=== PATIENT | female | born 1995 | race Caucasian/White ===

== ENCOUNTER 2019-04-01 14:44 | Emergency (ER) | payer SELFPAY ==
--- NOTE | 2019-04-01 16:00 | ER ---
Nurse's Notes [facility] Name: Ja Hassan Age: 23 yrs Sex: Female : 1995 Arrival Date: 04/01/2019 Time: 14:46 Bed 9 Private MD: Diagnosis: Low back pain Presentation: 04/01 15:00 Presenting complaint: Patient states: "A week ago I went to the ER because I was having aj1 back pain, they said it was probably muscle pain, but I feel like its bone pain, they didn't do any imaging, and Im still hurting" Denies any recent injury. Transition of care: patient was not received from another setting of care. Onset of symptoms was 2018. Risk Assessment: Do you want to hurt yourself or someone else? Patient reports no desire to harm self or others. Initial Sepsis Screen: Does the patient meet any 2 criteria? No. Patient's initial sepsis screen is negative. Does the patient have a suspected source of infection? No. Patient's initial sepsis screen is negative. Care prior to arrival: None. 15:00 Method Of Arrival: Ambulatory aj1 15:00 Acuity: JUNIOR 4 aj1 Triage Assessment: 15:03 General: Appears in no apparent distress. uncomfortable, Behavior is calm, cooperative, aj1 appropriate for age. Pain: Complains of pain in back Pain currently is 8 out of 10 on a pain scale. Neuro: Level of Consciousness is awake, alert, obeys commands. Cardiovascular: Patient's skin is warm and dry. Respiratory: Airway is patent Respiratory effort is even, unlabored, Respiratory pattern is regular, symmetrical. Musculoskeletal: Range of motion: intact in all extremities. 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 - Social history:: Smoking status: Patient uses tobacco products, smokes one-half pack cigarettes per day. - Ebola Screening: : Patient denies travel to an Ebola-affected area in the 21 days before illness onset. Screenin:30 Abuse screen: Denies threats or abuse. Nutritional screening: No deficits noted. tr5 Tuberculosis screening: No symptoms or risk factors identified. Fall Risk None identified. Assessment: 15:30 General: Appears uncomfortable, Behavior is calm, cooperative, appropriate for age. tr5 Pain: Complains of pain in right low back. Neuro: Level of Consciousness is awake, alert, obeys commands, Oriented to person, place, time, Oracle Developer are equal bilaterally Moves all extremities. Cardiovascular: Heart tones present Capillary refill < 3 seconds Pulses are all present. Edema is absent. Respiratory: Airway is patent Respiratory effort is even, unlabored, Respiratory pattern is regular, symmetrical. GI: No signs and/or symptoms were reported involving the gastrointestinal system. : No signs and/or symptoms were reported regarding the genitourinary system. EENT: No signs and/or symptoms were reported regarding the EENT system. Derm: No signs and/or symptoms reported regarding the dermatologic system. Musculoskeletal: Reports pain in right low back. Vital Signs: 15:03 BP 117 / 83; Pulse 88; Resp 18; Temp 98.0; Pulse Ox 100% on R/A; Weight 58.97 kg (R); aj1 Height 5 ft. 5 in. (165.10 cm) (R); Pain 8/10; 15:03 Body Mass Index 21.63 (58.97 kg, 165.10 cm) aj1 ED Course: 14:46 Patient arrived in ED. as 15:02 Triage completed. aj1 15:03 Arm band placed on Patient placed in waiting room, Patient notified of wait time. [facility] 15:11 Ortega Taylor PA is PHCP. [facility] 15:11 Evangelist Singh MD is Attending Physician. [facility] 15:30 Bed in low position. Call light in reach. Side rails up X 1. tr5 15:52 Jas Galeas, RN is Primary Nurse. tr5 16:05 No provider procedures requiring assistance completed. Patient did not have IV access tr5 during this emergency room visit. Administered Medications: No medications were administered Outcome: 15:58 Discharge ordered by . [facility] 16:05 Discharged to home ambulatory. tr5 16:05 Condition: stable 16:05 Discharge instructions given to patient, Instructed on discharge instructions, follow up and referral plans. medication usage, Demonstrated understanding of instructions, follow-up care, medications, Prescriptions given X 2. 16:07 Patient left the ED. tr5 Signatures: Keri Reyes RN RN aj1 Ortega Taylor PA PA jmm Martinez, Amelia as Rodriguez, Tommie, JUNG RN tr5
--- NOTE | 2019-04-01 16:00 | EDPHYS ---
Physician Documentation [facility] Name: Ja Hassan Age: 23 yrs Sex: Female : 1995 Arrival Date: 04/01/2019 Time: 14:46 Bed 9 Private MD: ED Physician Evangelist Singh HPI: 04/01 15:47 This 23 yrs old Female presents to ER via Ambulatory with complaints of Back jmm Pain. 15:47 The patient presents with pain that is acute. Onset: The symptoms/episode jmm began/occurred gradually, 1 week(s) ago. The pain does not radiate. Associated signs and symptoms: Pertinent negatives: dysuria, fever, hematuria, numbness, tingling. This is a 23 year old female with a history of scoliosis that presents to the ED with complaints of lower back pain. patient denies injury. denies dysuria, radiation of pain, abdominal pain, bowel or bladder problems. . 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 - Social history:: Smoking status: Patient uses tobacco products, smokes one-half pack cigarettes per day. - Ebola Screening: : Patient denies travel to an Ebola-affected area in the 21 days before illness onset. ROS: 15:47 Constitutional: Negative for fever, chills, and weight loss, Cardiovascular: Negative jmm for chest pain, palpitations, and edema, Respiratory: Negative for shortness of breath, cough, wheezing, and pleuritic chest pain. 15:47 Back: Positive for pain with movement. 15:47 All other systems are negative. Exam: 15:47 Constitutional: This is a well developed, well nourished patient who is awake, alert, jmm and in no acute distress. Head/Face: atraumatic. Eyes: EOMI, no conjunctival erythema appreciated ENT: Moist Mucus Membranes Neck: Trachea midline, Supple Chest/axilla: Normal chest wall appearance and motion. Cardiovascular: Regular rate and rhythm. No edema appreciated Respiratory: Normal respirations, no respiratory distress appreciated Abdomen/GI: Non distended, soft 15:47 Skin: General appearance color normal MS/ Extremity: Moves all extremities, no obvious deformities appreciated, no edema noted to the lower extremities Neuro: Awake and alert, normal gait 15:47 Back: muscle spasm, is appreciated in the right low back. Vital Signs: 15:03 BP 117 / 83; Pulse 88; Resp 18; Temp 98.0; Pulse Ox 100% on R/A; Weight 58.97 kg (R); aj1 Height 5 ft. 5 in. (165.10 cm) (R); Pain 8/10; 15:03 Body Mass Index 21.63 (58.97 kg, 165.10 cm) aj1 MDM: 15:40 Patient medically screened. [facility] 15:47 Data reviewed: vital signs, nurses notes. Counseling: I had a detailed discussion with jenny the patient and/or guardian regarding: the historical points, exam findings, and any diagnostic results supporting the discharge/admit diagnosis, the need for outpatient follow up, to return to the emergency department if symptoms worsen or persist or if there are any questions or concerns that arise at home. ED course: PE findings consistent with MS pain. I do not suspect cord compression or cauda equina. Patient is able to ambulate without difficulty. . Administered Medications: No medications were administered Disposition: 17:45 Co-signature as Attending Physician, Evangelist Singh MD. rn Disposition: 04/01/19 15:58 Discharged to Home. Impression: Low back pain. - Condition is Stable. - Discharge Instructions: Back Pain, Adult. - Prescriptions for Prednisone 20 mg Oral Tablet - take 3 tablet by ORAL route once daily for 5 days; 15 tablet. Zanaflex 4 mg Oral Tablet - take 1 tablet by ORAL route every 8 hours As needed; 20 tablet. - Medication Reconciliation Form, Thank You Letter, Antibiotic Education, Prescription Opioid Use, Work release form form. - Follow up: Private Physician; When: 2 - 3 days; Reason: Recheck today's complaints, Continuance of care, Re-evaluation by your physician. Signatures: Keri Reyes RN RN aj1 Ortega Taylor PA PA Evangelist Valencia MD MD rn Rodriguez, Tommie, RN RN tr5 Corrections: (The following items were deleted from the chart) 16:07 15:58 04/01/2019 15:58 Discharged to Home. Impression: Low back pain. Condition is tr5 Stable. Forms are Medication Reconciliation Form, Thank You Letter, Antibiotic Education, Prescription Opioid Use. Follow up: Private Physician; When: 2 - 3 days; Reason: Recheck today's complaints, Continuance of care, Re-evaluation by your physician. jenny
[2019-04-01 18:29] VITALS: BP 117/83; TEMP 98; O2SAT 100
== END 2019-04-01 16:07 | disposition home or self-care (01) ==
LOC: ER 14:44
DX: M54.5 Low back pain (principal); Z88.0 Allergy status to penicillin; F41.9 Anxiety disorder, unspecified; G43.909 Migraine, unspecified, not intractable, without status migrainosus; F17.210 Nicotine dependence, cigarettes, uncomplicated
CPT/HCPCS: 99282

== ENCOUNTER 2020-12-12 12:08 | Emergency (ER) | payer BC, SELFPAY ==
--- OUTSIDE RECORDS SUMMARY | 2020-12-12 12:12 | XMS REPORT | Continuity of Care Document ---
:[address] [facility] t Address [address] [place] [address] Care Team Providers Name Role Phone PCP Primary Care Physician Unavailable Key PUBLIC HEALTH EDUCATOR, F Attending Clinician Nurse, Urgent Care Attending Clinician Unavailable Beto PUTNAM, A. Attending Clinician Payers Payer Name Policy Type Policy Effective Date Expiration Date Sour ce Number [id number] OUT OF 2019 [facility] 00:00[facility]00 [facility] [id number] [id number] Advance Directives Directive Decision Effective Date Termination Date Comments Sour ce Yes N/A Formerly [facility] Problems Condition Condition Condition Status Onset Resolution Last Treating Co mments Source Name Details Category Date Date Treatment Clinician Date Problem Problem [facility] na Allergies, Adverse Reactions, Alerts Allergy Allergy Status Severity Reaction(s) Onset Inactive Treating Comm ents Source Name Type Date Date Clinician Penicill Propensi Active Shortness Of [facility] ins ty to Breath 8-06 st adverse 00:00: Hospita reaction 00 l s to drug Penicill Allergy Active angio edema CH RISTU in to 6-21 S substanc 00:00: Health e [facility] na Social History Social Habit Start Date Stop Date Quantity Comments Source History SDOH [facility] Alcohol Binge Hospital Exposure to Not sure [facility] SARS-CoV-2 (event) Hospit al History SDOH [facility] Alcohol Std Drinks Hospit al Tobacco use and 2020-12-03 2020-12-03 Never used [facility] exposure 00:00:00 00:00:00 Hospital Alcohol intake 2020-12-03 2020-12-03 Lifetime [facility] 00:00:00 00:00:00 non-drinker Hospital (finding) History SDOH 2020-12-03 2020-12-03 1 [facility] Alcohol Frequency 00:00:00 00:00:00 Hospita l Sex Assigned At [birth year] [facility] 00:00:00 00:00:00 Hospital Smoking Status Start Date Stop Date Source Never smoker [facility] Medications Ordered Filled Start Stop Current Ordering Indication Dosage Frequency Signature Comments Components Source Medication Medication Date Date Medication? Clinician (SIG) Name Name codeine-but Yes 1{capsu Q4H Take 1 [facility] albital-ASA 8-06 le} capsule by st -caff 23:45: mouth Hospita (FIORINAL 31 every 4 l WITH (four) CODEINE) hours as 30-50-325-4 needed for 0 mg pain capsule .acute pain. butalbitaL- 2020- No 1{capsu Q4H Take 1 [facility] acetaminop- 8-06 08-10 le} capsule by s t caf-cod 00:00: 04:59 mouth Hospita (FIORICET 00 :00 every 4 l WITH (four) CODEINE) hours as 50-325-40-3 needed for 0 mg per headaches capsule or migraine for up to 3 days .acute pain. Vital Signs Vital Name Observation Time Observation Value Comments Source Systolic blood 2020-12-03 23:39:00 95 mm[Hg] [facility] Hospital pressure Diastolic blood 2020-12-03 23:39:00 64 mm[Hg] [facility] pressure Heart rate 2020-12-03 23:39:00 69 /min [facility] Respiratory rate 2020-12-03 23:39:00 17 /min [facility] Oxygen saturation in 2020-12-03 23:39:00 100 /min [facility] Arterial blood by Pulse oximetry Body temperature 2020-12-03 20:29:35 36.78 Lynne [facility] Heart Rate 2020-10-18 16:56:00 73 /min [facility] marzena Respiratory rate 2020-10-18 16:56:00 16 /min [facility] Body Temperature 2020-10-18 16:56:00 97.8 [degF] [facility] BP Diastolic 2020-10-18 16:56:00 61 mm[Hg] [facility] BP Systolic 2020-10-18 16:56:00 97 mm[Hg] [facility] BP Diastolic 2020-10-18 16:16:00 61 mm[Hg] [facility] BP Systolic 2020-10-18 16:16:00 97 mm[Hg] [facility] Heart Rate 2020-10-18 16:16:00 73 /min [facility] Respiratory rate 2020-10-18 16:16:00 16 /min [facility] Body Temperature 2020-10-18 16:16:00 97.8 [degF] [facility] Procedures Procedure Date / Time Performing Clinician Source Performed ECG 12-LEAD 2020-12-03 23[facility]34[facility] 2020-12-03 23:15:03 Natasha Bautista [facility] INTERPRETATION XR CHEST 1 VW PORTABLE 2020-12-03 22:55:[facility] Planned Activity Planned Date Details Comments Source Future Scheduled Test CHLAMYDIA SCREENING [facility] [code = CHLAMYDIA SCREENING] Future Scheduled Test COVID-19 VACCINE (1) [facility] [code = COVID-19 VACCINE (1)] Future Scheduled Test Hepatitis C screening [facility] (procedure) [code = 096537313] Future Scheduled Test Screening for [facility] malignant neoplasm of cervix (procedure) [code = 268594005] Future Scheduled Test INFLUENZA VACCINE [facility] [code = INFLUENZA VACCINE] Goal Patient referral JADE connor [code = 1076133 ] [facility] Goal Patient referral JADE connor [code = 5651173 ] [facility] Goal Patient referral JADE Martinez alth [code = 9446208 ] [facility] Instructions OTHER [facility] marzena Instructions Lupus [facility] marzena Encounters Start End Encounter Admission Attending Care Care Encounter Source Date/Time Date/Time Type Type Clinicians Facility Department ID 2020-12-05 2020-12-05 Emergency [place], [facility] [id number] 16:24:00 18:01:00 Aixa Luna [place] [id number] [place] [id number] [place] [id number] 2020-12-05 2020-12-05 Nurse Nurse, Jonas [facility] [id number] 16:08:18 16:17:25 Visit Urgent [facility] [id number] [place] [id number] Professio [id number] [address]al [address] 2020-12-03 2020-12-03 Emergency [facility], [id number] Methodi 17:20:00 18:53:[id number] 3.430.2.7 Hospit a .[id number] l .8 2020-12-03 2020-12-03 Emergency [facility] [id number] [place] 00:00:00 00:00:[address] 2020-12-03 2020-12-03 Travel 1.2.840.1 [id number] Methodi 00:00:00 00:00:[id number] 3.430.2.7 0.2.7.3.698 Ho spita .[id number] 084.8 l .8 2020-10-18 2020-10-18 Departed AROLDO HANSEN [id number] CHRISTShelly 16:36:00 17:13:[address] na Results Test Description Test Time Test Comments Results Result Comments Source ECG 12 lead 2020-12-06 00:33:45 Test Item Value Reference Range Interpretation Comme nts Ventricular rate (test code = 253) Atrial rate (test code = 255) SC interval (test code = 266) QRSD interval (test code = 260) QT interval (test code = 264) QTC interval (test code = 265) P axis 1 (test code = 267) QRS axis 1 (test code = 268) T wave axis (test code = 270) EKG impression (test code = 273) Normal sinus rhythm-Normal ECG-No previous ECGs available- [facility] ED Preliminary Interpretation - Not an [id number] 23:15:03SuNatasha sim PA-C 12/03/2020 7:40 PME ED Preliminary Interpretation - Not an OrderPerformed by: Natasha Bautista PA-CAuthorized by: Prashant Pérez MD ECG reviewed by ED Physician in the absence of a articulation officer: yes Rate: ECG rate: 67 ECG rate assessment: normal Rhythm: Rhythm: sinus rhythm QRS: QRS intervals: NormalConduction: Conduction: normal ST segments: ST segments: NormalT waves: T waves: normalChrist[facility] Chest 1 Vw [id number] 23:08:49EXAMINATION: XR CHEST 1 VW PORTABLE CLINICAL HISTORY: Rapid heart Rate COMPARISON: None IMPRESSION: Cardiomediastinal silhouette and pulmonary vasculature are within normal limits. Lungs are clear. No pleural effusion or pneumothorax. Bones are unremarkable. [id number] Interface, Radiology Results Incoming - 12/03/2020 6:11 PM CDT EXAMINATION: XR CHEST 1 VW PORTABLECLINICAL HISTORY: Rapid heart RateCOMPARISON: NoneIMPRESSION:Cardiomediastinal silhouette and pulmonary vasculature are within normal limits.Lungs are clear. No pleural effusion or pneumothorax.Bones are unremarkable.[id number]
[2020-12-12] MEDS ORDERED: HYDROCODONE/APAP 5/325 MG TAB ONE ×2 (15:13→16:40)
[2020-12-12] MEDS ORDERED: dexAMETHasone 10 MG/ML VIAL ONE (15:13)
--- NOTE | 2020-12-12 15:52 | EDPHYS ---
Physician Documentation [facility] Name: Ja Hassan Age: 25 yrs Sex: Female : 1995 Arrival Date: 12/12/2020 Time: 12:12 Bed 12 Private MD: ED Physician Nakul Andrade HPI: 12/12 14:23 This 25 yrs old Female presents to ER via Ambulatory with complaints of Lupus pm1 Flare up. 14:23 Flare up of lupus -rash to face and pain to large joints. Patient has had flareups in pm1 the past and the presentation is the same. 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 Onset: The symptoms/episode began/occurred 2 week(s) ago. Severity of symptoms: in the emergency department the symptoms are worse No improvement with OTC pain medication. 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 - Social history:: Smoking status: Patient denies any tobacco usage or history of. ROS: 14:45 Constitutional: Negative for fever, chills, and weight loss, Cardiovascular: Negative pm1 for chest pain, palpitations, and edema, Respiratory: Negative for shortness of breath, cough, wheezing, and pleuritic chest pain, Abdomen/GI: Negative for abdominal pain, nausea, vomiting, diarrhea, and constipation, Back: Negative for injury and pain. 14:45 Neuro: Negative for headache, weakness, numbness, tingling, and seizure. 14:45 MS/extremity: Positive for Large joints pain, Negative for injury or acute deformity, decreased range of motion, deformity. 14:45 Skin: Positive for rash, of the face. 14:45 All other systems are negative. Exam: 14:45 Constitutional: This is a well developed, well nourished patient who is awake, alert, pm1 and in no acute distress. Head/Face: Normocephalic, atraumatic. 14:45 Back: No spinal tenderness. No costovertebral tenderness. Full range of motion. MS/ Extremity: Pulses equal, no cyanosis. Neurovascular intact. Full, normal range of motion. 14:45 Eyes: Exam is negative for acute changes, Extraocular movements: no acute changes, Conjunctiva: normal, no injection, Sclera: no acute changes, icterus, is not appreciated. 14:45 ENT: Exam is negative for acute changes, Mouth: no acute changes, Lips: normal, Oral mucosa: normal, pink and intact, moist. 14:45 Cardiovascular: Rate: normal, Rhythm: regular, Pulses: no pulse deficits are appreciated. 14:45 Respiratory: Exam negative for acute changes, respiratory distress, shortness of breath, Breath sounds: are clear throughout. 14:45 Abdomen/GI: Inspection: abdomen appears normal, Palpation: abdomen is soft and non-tender, in all quadrants. 14:45 Skin: Appearance: normal except for affected area, consistent with Lupus rash. Reddish butterfly-shaped rash on face with bumpy appearance. 14:45 Neuro: Exam negative for acute changes, Orientation: is normal, Mentation: is normal, Motor: is normal, moves all fours. Vital Signs: 12:31 BP 116 / 67; Pulse 103; Resp 14; Temp 98.3(TE); Pulse Ox 99% on R/A; Weight 58.97 kg; ss Height 5 ft. 5 in. (165.10 cm); Pain 8/10; 14:57 BP 110 / 70; Pulse 90; Resp 16; Pulse Ox 100% ; vg1 12:31 Body Mass Index 21.63 (58.97 kg, 165.10 cm) ss MDM: 14:10 Patient medically screened. pm1 14:23 Data reviewed: vital signs. Data interpreted: Pulse oximetry: on room air is 99 %. pm1 Interpretation: normal. 15:39 ED course: CELERY CUTTER aware reviewed. Patient with narcotic score 500 sedative for 490. pm1 Patient with a recent subscription for hydrocodone on 12/06/2020 from internal medicine physician. Will discharge patient home with steroids and recommend follow-up with PCP or internal medicine physician for narcotics as needed. 15:41 Counseling: I had a detailed discussion with the patient and/or guardian regarding: the pm1 historical points, exam findings, and any diagnostic results supporting the discharge/admit diagnosis, the need for outpatient follow up, for definitive care, a sausage wrapper, to return to the emergency department if symptoms worsen or persist or if there are any questions or concerns that arise at home. 16:12 ED course: Explained findings on CELERY CUTTER aware. And discussed with patient plan to treat pm1 with steroids and inability to provide narcotics as a prescription. She will need to get narcotics from a regular PCP or sausage wrapper. She reports pain is improved at 5 out of 10. Offered to give the patient additional pain meds prior to leaving. Administered Medications: 14:52 Drug: HYDROcodone-acetaminophen 5 mg-325 mg 1 tabs Route: PO; vg1 16:20 Follow up: Response: No adverse reaction; Marked relief of symptoms vg1 14:57 Drug: Decadron (dexamethasone) 10 mg Route: IM; Site: left deltoid; vg1 16:20 Follow up: Response: No adverse reaction vg1 16:20 Drug: HYDROcodone-acetaminophen 5 mg-325 mg 1 tabs Route: PO; vg1 16:20 Follow up: Response: Medication administered at discharge. vg1 Disposition: 18:36 Co-signature as Attending Physician, Nakul Andrade MD I agree with the assessment and tw4 plan of care. Disposition Summary: 12/12/20 15:52 Discharge Ordered Location: Home pm1 Problem: new pm1 Symptoms: have improved pm1 Condition: Stable pm1 Diagnosis - Systemic lupus erythematosus, unspecified pm1 Followup: pm1 - With: Emergency Department - When: As needed - Reason: Worsening of condition Followup: pm1 - With: Private Physician - When: 2 - 3 days - Reason: Recheck today's complaints, Continuance of care, Re-evaluation by your physician Discharge Instructions: - Discharge Summary Sheet pm1 - Systemic Lupus Erythematosus, Adult pm1 Forms: - Medication Reconciliation Form pm1 - Thank You Letter pm1 - Antibiotic Education pm1 - Prescription Opioid Use pm1 Prescriptions: - Prednisone 20 mg Oral Tablet - take 3 tablets by ORAL route once daily for 5 days; 15 tablet; Refills: 0, pm1 Product Selection Permitted Signatures: Vivian Busby RN RN ss Juan Chau, POWER AND RECOVERY SUPERVISOR POWER AND RECOVERY SUPERVISOR pm1 Nakul Andrade MD MD 4 Mercedes Godinez RN RN vg1
--- NOTE | 2020-12-12 15:52 | ER ---
Nurse's Notes [facility] Name: Ja Hassan Age: 25 yrs Sex: Female : 1995 Arrival Date: 12/12/2020 Time: 12:12 Bed 12 Private MD: Diagnosis: Systemic lupus erythematosus, unspecified Presentation: 12/12 12:31 Chief complaint: Patient states: Lupus flare up. Pt c/o generalized body pain that is ss worse in her "biggest joints" that began 1 week ago. Coronavirus screen: Client denies travel out of the [place] in the last 14 days. Ebola Screen: Patient denies exposure to infectious person. Patient denies travel to an Ebola-affected area in the 21 days before illness onset. Initial Sepsis Screen: Does the patient meet any 2 criteria? No. Patient's initial sepsis screen is negative. Does the patient have a suspected source of infection? No. Patient's initial sepsis screen is negative. Risk Assessment: Do you want to hurt yourself or someone else? Patient reports no desire to harm self or others. Onset of symptoms was December 04, 2020. 12:31 Method Of Arrival: Ambulatory ss 12:31 Acuity: JUNIOR 3 ss BACTERIOLOGIST INDUSTRIAL: 12:33 LMP 11/21/2020 ss Historical: - Allergies: 12:33 PENICILLINS; ss - Home Meds: 12:33 hydroxychloroquine 200 mg oral tab 1 tab once daily [Active]; ss - PMHx: 12:33 Anxiety; Migraines; Ovarian cyst; Rheumatoid arthritis; Lupus; ss - PSHx: 12:33 tubal ligation; ss - Immunization history:: Adult Immunizations up to date. - Social history:: Smoking status: Patient denies any tobacco usage or history of. Screenin:57 Abuse screen: Denies threats or abuse. Nutritional screening: No deficits noted. vg1 Tuberculosis screening: No symptoms or risk factors identified. Fall Risk None identified. Assessment: 14:47 General: Appears in no apparent distress. comfortable, Behavior is calm, cooperative. vg1 Pain: Complains of pain in stated generalized body pain Pain currently is 8 out of 10 on a pain scale. Pain began for about two weeks. Neuro: Level of Consciousness is awake, alert, obeys commands, Oriented to person, place, time, situation. Cardiovascular: Patient's skin is warm and dry. Respiratory: Airway is patent Respiratory effort is even, unlabored. GI: No signs and/or symptoms were reported involving the gastrointestinal system. : No signs and/or symptoms were reported regarding the genitourinary system. EENT: No signs and/or symptoms were reported regarding the EENT system. Derm: Skin is intact, is healthy with good turgor, Rash noted that is red, on face. Musculoskeletal: Circulation, motion, and sensation intact. 16:13 Reassessment: received VO from Isac COELHO to administer [place] 5/325 mg PO x1. vg1 16:20 Reassessment: Patient appears in no apparent distress at this time. No changes from vg1 previously documented assessment. Patient and/or family updated on plan of care and expected duration. Pain level reassessed. Patient is alert, oriented x 3, equal unlabored respirations, skin warm/dry/pink. Vital Signs: 12:31 BP 116 / 67; Pulse 103; Resp 14; Temp 98.3(TE); Pulse Ox 99% on R/A; Weight 58.97 kg; ss Height 5 ft. 5 in. (165.10 cm); Pain 8/10; 14:57 BP 110 / 70; Pulse 90; Resp 16; Pulse Ox 100% ; vg1 12:31 Body Mass Index 21.63 (58.97 kg, 165.10 cm) ED Course: 12:12 Patient arrived in ED. mr 12:33 Triage completed. ss 12:33 Arm band placed on right wrist. ss 14:09 Juan Chau NP is PHCP. pm1 14:09 Nakul Andrade MD is Attending Physician. pm1 14:46 Mercedes Godinez, RN is Primary Nurse. vg1 14:57 Patient has correct armband on for positive identification. Bed in low position. Call vg1 light in reach. Side rails up X 1. 14:57 No provider procedures requiring assistance completed. Patient did not have IV access vg1 during this emergency room visit. Administered Medications: 14:52 Drug: HYDROcodone-acetaminophen 5 mg-325 mg 1 tabs Route: PO; vg1 16:20 Follow up: Response: No adverse reaction; Marked relief of symptoms vg1 14:57 Drug: Decadron (dexamethasone) 10 mg Route: IM; Site: left deltoid; vg1 16:20 Follow up: Response: No adverse reaction vg1 16:20 Drug: HYDROcodone-acetaminophen 5 mg-325 mg 1 tabs Route: PO; vg1 16:20 Follow up: Response: Medication administered at discharge. vg1 Outcome: 15:52 Discharge ordered by . pm1 16:20 Discharged to home ambulatory, with family. vg1 16:20 Condition: stable 16:20 Discharge instructions given to patient, Instructed on discharge instructions, follow up and referral plans. Demonstrated understanding of instructions, follow-up care, medications, Prescriptions given X 1. 16:21 Patient left the ED. vg1 Signatures: Namita Keith mr Vivian Busby, RN RN ss Juan Chau, MELITON TRAY DELIVERY AIDE pm1 Mercedes Godinez RN RN vg1 Corrections: (The following items were deleted from the chart) 16:14 14:47 Derm: Skin is intact, is healthy with good turgor, vg1 vg1
[2020-12-12 16:27] VITALS: TEMP 98.3
[2020-12-12 16:28] VITALS: BP 110/70; O2SAT 100
== END 2020-12-12 16:21 | disposition home or self-care (01) ==
LOC: ER 12:08
DX: M32.9 Systemic lupus erythematosus, unspecified (principal); Z88.0 Allergy status to penicillin
CPT/HCPCS: 96372; 99283; J1100

== ENCOUNTER 2020-12-17 15:11 | Emergency (ER) | payer BC ==
--- OUTSIDE RECORDS SUMMARY | 2020-12-17 15:14 | XMS REPORT | Continuity of Care Document ---
:1995 Author Organization [facility] t Address [address] [place] [address] Care Team Providers Name Role Phone Asked, Pcp Primary Care Physician Unavailable Key MEDICAL SCIENTIST, F Attending Clinician Nurse, Urgent Care Attending Clinician Unavailable Beto PUTNAM, A. Attending Clinician Payers Payer Name Policy Type Policy Effective Date Expiration Date Sour ce Number [id number] OUT OF 2019 [facility]xx 001 00:00:00 [facility] [id number] [id number] Advance Directives Directive Decision Effective Date Termination Date Comments Sour ce Yes N/A [facility] Problems Condition Condition Condition Status Onset Resolution Last Treating Co mments Source Name Details Category Date Date Treatment Clinician Date Problem Problem [facility] Allergies, Adverse Reactions, Alerts Allergy Allergy Status Severity Reaction(s) Onset Inactive Treating Comm ents Source Name Type Date Date Clinician Penicill Propensi Active Shortness Of Methodi ins ty to Breath 8-06 st adverse 00:00: Hospita reaction 00 l s to drug Penicill Allergy Active angio edema [facility] in to 6-21 S substanc 00:00: [facility] [place] Social History Social Habit Start Date Stop Date Quantity Comments Source History SDOH [facility] History SDOH [facility] Std Drinks Hospit al Exposure to Not sure [facility] SARS-CoV-2 (event) Hospit al Tobacco use and 2020-12-03 2020-12-03 Never used [facility] exposure 00:00:00 00:00:00 Hospital Alcohol intake 2020-12-03 2020-12-03 Lifetime [facility] 00:00:00 00:00:00 non-drinker Hospital (finding) History SDOH 2020-12-03 2020-12-03 1 [facility] Alcohol Frequency 00:00:00 00:00:00 Hospita l Sex Assigned At [birth year] [facility] 00:00:00 00:00:00 Hospital Smoking Status Start Date Stop Date Source Never smoker [facility] Medications Ordered Filled Start Stop Current Ordering Indication Dosage Frequency Signature Comments Components Source Medication Medication Date Date Medication? Clinician (SIG) Name Name codeine-but Yes 1{capsu Q4H Take 1 [facility] albital-ASA 8-06 le} capsule by [facility] 23:45: mouth Hospita (FIORINAL 31 every 4 l WITH (four) CODEINE) hours as 30-50-325-4 needed for 0 mg pain capsule .acute pain. codeine-but Yes 1{capsu Q4H Take 1 [facility] albital-ASA 8-06 le} [facility] (FIORINAL 31 every 4 [...] for up to 3 days .acute pain. butalbitaL- 2020- No 1{capsu Q4H [...] Source Systolic blood 2020-12-03 23:39:00 95 mm[Hg] [facility] pressure Diastolic blood 2020-12-03 23:39:00 64 mm[Hg] [facility] pressure Heart rate 2020-12-03 23:39:00 69 /min [facility] Respiratory rate 2020-12-03 23:39:00 17 /min [facility] Oxygen saturation in 2020-12-03 23:39:00 100 /min [facility] Arterial blood by Pulse oximetry Body temperature 2020-12-03 20:29:35 36.78 Lynne [facility] Heart Rate 2020-10-18 16:56:00 73 /min [facility] Respiratory rate 2020-10-18 16:56:00 16 /min [facility] Body Temperature 2020-10-18 16:56:00 97.8 [degF] [facility] BP Diastolic 2020-10-18 16:56:00 61 mm[Hg] [facility] BP Systolic 2020-10-18 16:56:00 97 mm[Hg] [facility] BP Diastolic 2020-10-18 16:16:00 61 mm[Hg] [facility] BP Systolic 2020-10-18 16:16:00 97 mm[Hg] [facility] Heart Rate 2020-10-18 16:16:00 73 /min [facility] Respiratory rate 2020-10-18 16:16:00 16 /min [facility] Body Temperature 2020-10-18 16:16:00 97.8 [degF] [facility] Procedures Procedure Date / Time Performing Clinician Source Performed ECG 12-LEAD 2020-12-03 23:34:15 Hu Chen [facility] ECG ED PRELIMINARY 2020-12-03 23:15:03 Natasha Bautista [facility] INTERPRETATION XR CHEST 1 VW PORTABLE 2020-12-03 22:55:48 Hu Chen [facility] Plan of Care Planned Activity Planned Date Details Comments Source Future Scheduled Test CHLAMYDIA SCREENING [facility] [code = CHLAMYDIA SCREENING] Future Scheduled Test COVID-19 VACCINE (1) [facility] [code = COVID-19 VACCINE (1)] Future Scheduled Test Hepatitis C screening [facility] (procedure) [code = 263346189] Future Scheduled Test Screening for [facility] malignant neoplasm of cervix (procedure) [code = 707002961] Future Scheduled Test INFLUENZA VACCINE [facility] [code = INFLUENZA VACCINE] Future Scheduled Test CHLAMYDIA SCREENING [facility] [code = CHLAMYDIA SCREENING] Future Scheduled Test COVID-19 VACCINE (1) [facility] [code = COVID-19 VACCINE (1)] Future Scheduled Test Hepatitis C screening [facility] (procedure) [code = 525897379] Future Scheduled Test Screening for [facility] malignant neoplasm of cervix (procedure) [code = 407469080] Future Scheduled Test INFLUENZA VACCINE [facility] [code = INFLUENZA VACCINE] Goal Patient referral [facility] [code = 2566196 ] [facility] Goal Patient referral [facility] [code = 4252764 ] [facility] Goal Patient referral [facility] [code = 7763686 ] [facility] Instructions OTHER [facility]zena Instructions Lupus [facility] marzena Encounters Start End Encounter Admission Attending Care Care Encounter Source Date/Time Date/Time Type Type Clinicians Facility Department ID 2020-12-05 2020-12-05 Emergency Ibikunle, RUST [id number] 16:24:00 18:01:00 Aixa [place] [id number] [place] 4.2.7.2.686 [place] [id number] 2020-12-05 2020-12-05 Nurse Nurse, Jonas RUST [id number] 16:08:18 16:17:25 Visit Ur[facility] Care Health [id number] [place] 4.2.7.2.686 Profess [id number] [address] 2020-12-03 2020-12-03 Emergency [place], 1.2.840.1 [id number] Methodi 17:20:00 18:53:[id number] 3.430.2.7 Hospit a .[id number] l .8 2020-12-03 2020-12-03 Emergency [place], 1.2.840.1 [id number] Methodi 17:20:00 18:53:[address] 3.430.2.7 Hospit a .[id number] l .8 2020-12-03 2020-12-03 Travel 1.2.840.1 [id number] Methodi 00:00:00 00:00:[address] 3.430.2.7 0.2.7.3.698 Ho spita .3.789538 084.8 l .8 2020-12-03 2020-12-03 Travel 1.2.840.1 [id number] [id number] Methodi 00:00:00 00:00:[address] 3.430.2.7 0.2.7.3.698 Ho spita .3.752435 084.8 l .8 2020-10-18 2020-10-18 Departed AROLDO HANSEN [id number] KAYLA 16:36:00 17:13:[address] Results Test Description Test Time Test Comments Results Result Comments Source ECG 12 lead 2020-12-06 00:33:45 Test Item Value Reference Range Interpretation Comme nts Ventricular rate (test code = 253) Atrial rate (test code = 255) DC interval (test code = 266) QRSD interval (test code = 260) QT interval (test code = 264) QTC interval (test code = 265) P axis 1 (test code = 267) QRS axis 1 (test code = 268) T wave axis (test code = 270) EKG impression (test code = 273) Normal sinus rhythm-Normal ECG-No previous ECGs available- [facility] 12 [id number] 00:33:45 Test Item Value Reference Range Interpretation Comments Ventricular rate (test code = 253) Atrial rate (test code = 255) DC interval (test code = 266) QRSD interval (test code = 260) QT interval (test code = 264) QTC interval (test code = 265) P axis 1 (test code = 267) QRS axis 1 (test code = 268) T wave axis (test code = 270) EKG impression (test Normal sinus code = 273) rhythm-Normal ECG-No previous ECGs available-Electronica lly Signed By Elena Flower MD ([id number]) on 12/05/2020 7:33:43 PM [facility] ED Preliminary Interpretation - Not an [id number] 23:15:03Natasha Bautista PA-C 12/03/2020 7:40 PME ED Preliminary Interpretation - Not an OrderPerformed by: Natasha Bautista PA-CAuthorized by: Chaim Pérez MD ECG reviewed by ED Physician in the absence of a handicrafts teacher: yes Rate: ECG rate: 67 ECG rate assessment: normal Rhythm: Rhythm: sinus rhythm QRS: QRS intervals: NormalConduction: Conduction: normal ST segments: ST segments: NormalT waves: T waves: normalSt. [facility] Preliminary Interpretation - Not an [id number] 23:15:03 Natasha Bautista PA-C 12/03/2020 7:40 [facility] ED Preliminary Interpretation - Not an OrderPerformed by: Natasha Bautista PA-CAuthorized by: Chaim Pérez MD ECG reviewed by ED Physician in the absence of a handicrafts teacher: yes Rate: ECG rate: 67 ECG rate assessment: normal Rhythm: Rhythm: sinus rhythm QRS: QRS intervals: NormalConduction: Conduction: normal ST segments: ST segments: NormalT waves: T waves: [facility] 1 [id number] 23:08:49EXAMINATION: XR CHEST 1 VW PORTABLE CLINICAL HISTORY: Rapid heart Rate COMPARISON: None IMPRESSION: Cardiomediastinal silhouette and pulmonary vasculature are within normal limits. Lungs are clear. No pleural effusion or pneumothorax. Bones are unremarkable. [id number] Interface, Radiology Results 12/03/2020 6:11 PM CDT EXAMINATION: XR CHEST 1 PORTABLECLINICAL HISTORY: Rapid heart RateCOMPARISON: NoneIMPRESSION:Cardio mediastinal silhouette and pulmonary vasculature are within normal limits.Lungs are clear. No pleural effusion or pneumothorax.Bones are unremarkable.[address] [place], [place] [address]XR Chest 1 [id number] 23:08:49EXAMINATION: XR CHEST 1 VW PORTABLE CLINICAL HISTORY: Rapid heart Rate COMPARISON: None IMPRESSION: Cardiomediastinal silhouette and pulmonary vasculature are within normal limits. Lungs are clear. No pleural effusion or pneumothorax. Bones are unremarkable. [id number] Interface, Radiology Results 12/03/2020 6:11 PM CDT EXAMINATION: XR CHEST 1 PORTABLECLINICAL HISTORY: Rapid heart RateCOMPARISON: NoneIMPRESSION:Cardiomediastinal silhouette and pulmonary vasculature are within normal limits.Lungs are clear. No pleural effusion or pneumothorax.Bones are unremarkable.[address] [place] [address]
--- NOTE | 2020-12-17 17:32 | ER ---
Nurse's Notes [facility] Name: Ja Hassan Age: 25 yrs Sex: Female : 1995 Arrival Date: 12/17/2020 Time: 15:13 Bed 18 Private MD: Diagnosis: Systemic lupus erythematosus, unspecified Presentation: 12/17 15:54 Chief complaint: Patient states: Body pain, fever, fatigue, chills x 2 weeks. and sun kg blister on upper lip. Pt stated she got tested at [facility] urgent care this morning for COVID and was negative. Coronavirus screen: Client denies travel out of the [place] in the last 14 days. At this time, unable to obtain information related to travel outside the [place] At this time, the client does not indicate any symptoms associated with coronavirus-19. Ebola Screen: Patient negative for fever greater than or equal to 101.5 degrees Fahrenheit, and additional compatible Ebola Virus Disease symptoms Patient denies exposure to infectious person. Patient denies travel to an Ebola-affected area in the 21 days before illness onset. Initial Sepsis Screen: Does the patient meet any 2 criteria? No. Patient's initial sepsis screen is negative. Does the patient have a suspected source of infection? No. Patient's initial sepsis screen is negative. Risk Assessment: Do you want to hurt yourself or someone else? Patient reports no desire to harm self or others. Onset of symptoms was December 03, 2020. 15:54 Method Of Arrival: Ambulatory kg 15:54 Acuity: JUNIOR 4 kg Triage Assessment: 15:57 General: Appears in no apparent distress. Behavior is calm, cooperative, appropriate kg for age, quiet. Pain: Complains of pain in All major joints. Pain: Pain currently is 8 out of 10 on a pain scale. at worst was 10 out of 10 on a pain scale. level that patient reports is acceptable is 3 out of 10 on a pain scale. Quality of pain is described as aching, Pain began 2 weeks ago. CLIENT SUCCESS MANAGER: 15:57 LMP N/A - Irregular menses kg Historical: - Allergies: 15:57 PENICILLINS; kg - Home Meds: 15:57 fiorcet [Active]; hydroxychloroquine 200 mg Oral tab 1 tab once daily [Active]; kg - PMHx: 15:57 Anxiety; Lupus; Migraines; Ovarian cyst; Rheumatoid Arthritis; kg - PSHx: 15:57 tubal ligation; kg - Immunization history:: Adult Immunizations up to date, Client reports having NOT received the Covid vaccine. - Social history:: Smoking status: Patient denies any tobacco usage or history of. Screenin:59 Abuse screen: Denies threats or abuse. Denies injuries from another. Nutritional kg screening: No deficits noted. 22:54 Tuberculosis screening: No symptoms or risk factors identified. Fall Risk None ms4 identified. Assessment: 22:54 Reassessment: Patient appears in no apparent distress at this time. No changes from ms4 previously documented assessment. Patient and/or family updated on plan of care and expected duration. Pain level reassessed. Vital Signs: 15:54 BP 105 / 68; Pulse 81; Resp 20; Temp 98.8(TE); Pulse Ox 99% on R/A; Weight 58.97 kg kg (R); Height 5 ft. 5 in. (165.10 cm); Pain 8/10; 21:03 BP 120 / 69; Pulse 72; Resp 18; Pulse Ox 98% ; Pain 0/10; ms4 22:55 BP 124 / 74; Pulse 76; Resp 18; Pulse Ox 97% ; Pain 6/10; ms4 15:54 Body Mass Index 21.63 (58.97 kg, 165.10 cm) kg ED Course: 15:13 Patient arrived in ED. as 15:57 Triage completed. kg 15:57 Arm band placed on right wrist. kg 17:30 Ortega Taylor PA is PHCP. jmm 17:30 Aime Moreau MD is Attending Physician. jmm 18:38 Aime Moreau MD is Attending Physician. kdr 19:19 CXR XRAY In Process Unspecified. EDMS 19:27 Attending Physician role handed off by Aime Moreau MD 7 19:27 Rafael Durbin MD is Attending Physician. mh7 19:34 Inserted saline lock: 20 gauge in right antecubital area, using aseptic technique. oe Blood collected. 19:49 COVID-19 : Document "Date of Symptom Onset" if Symptomatic. Sent. zb 19:50 BMP Sent. zb 19:50 Blood Culture Adult (2) Sent. zb 19:50 C-Reactive Protein Sent. zb 19:50 CBC with Diff Sent. zb 22:53 No provider procedures requiring assistance completed. IV discontinued, intact, ms4 bleeding controlled, No redness/swelling at site. 22:54 Patient has correct armband on for positive identification. ms4 Administered Medications: 19:49 Drug: NS 0.9% 1000 ml Route: IV; Rate: 1 bolus; Site: right antecubital; zb 22:56 Follow up: Response: No adverse reaction; IV Status: Completed infusion; IV Intake: ms4 1000ml 19:49 Drug: Zofran (Ondansetron) 4 mg Route: IVP; Site: right antecubital; zb 21:02 Follow up: Response: No adverse reaction ms4 19:50 Drug: SOLU-Medrol (methylPrednisoLONE) 125 mg Route: IVP; Site: right antecubital; zb 21:02 Follow up: Response: No adverse reaction ms4 19:50 Drug: Ketorolac 15 mg Route: IVP; Site: right antecubital; zb 21:02 Follow up: Response: No adverse reaction ms4 21:28 Drug: HYDROcodone-acetaminophen 5 mg-325 mg 1 tabs Route: PO; ms4 22:55 Follow up: Response: No adverse reaction ms4 22:08 Drug: NS 0.9% 1000 ml Route: IV; Rate: 125 ml/hr; Site: right antecubital; ms4 22:55 Follow up: Response: No adverse reaction; IV Status: Completed infusion; IV Intake: ms4 150ml Intake: 22:55 IV: 150ml; Total: 150ml. ms4 22:56 IV: 1000ml; Total: 1150ml. ms4 Outcome: 17:32 Patient left the ED. kg 22:39 Discharge ordered by . mh7 22:53 Discharged to home ambulatory. ms4 22:53 Condition: stable 22:53 Discharge instructions given to patient, Instructed on discharge instructions, follow up and referral plans. Demonstrated understanding of instructions, follow-up care, medications, Prescriptions given X 1. 22:56 Patient left the ED. ms4 Signatures: Dispatcher [employer] EDMS Aime Moreau MD MD kdr Mickail, Joel, PA PA jmm Martinez, Amelia as Espinosa, Orlando oe Holmes, Maurice MD MD mh7 Aurora Cyr, RN RN zb Clarice Roman, RN RN kg Jina Gregory RN RN ms4
[2020-12-17 18:21] LABS: Urine Blood Negative (Negative); Urine Glucose Negative (Negative); Urine Protein Negative (Negative); Urine pH 8.5 (5.0-7.0)
[2020-12-17 18:29] VITALS: TEMP 98.8
--- NOTE | 2020-12-17 19:32 | RAD REPORT ---
EXAM DESCRIPTION: Curt Single View12/17/2020 7:19 pm CLINICAL HISTORY: fever COMPARISON: none FINDINGS: The lungs appear clear of acute infiltrate. The heart is normal size IMPRESSION: No acute abnormalities displayed
[2020-12-17] MEDS ORDERED: METHYLPREDNISOLONE 125 MG INJ ONE (19:33)
[2020-12-17] MEDS ORDERED: ONDANSETRON 4 MG/2 ML VIAL ONE (19:34)
[2020-12-17] MEDS ORDERED: NA CHLORIDE 0.9% 1,000 ML ONE (19:34)
[2020-12-17] MEDS ORDERED: KETOROLAC 30 MG/ML INJ ONE (19:34)
[2020-12-17 20:06] LABS: Absolute Lymphocytes (CBC) 2.4 K/uL (0.7-4.9); Basophils % 0.5 % (0-1.3); Hematocrit 38.8 % (36.0-45.0); Lymphocytes % 45.5 % (15.3-44.8); MPV 9.3 fL (7.6-11.3); RBC Red Blood Cell Count 4.47 M/uL (3.86-4.86)
[2020-12-17 20:10] LABS: Protime INR 0.9
[2020-12-17 20:16] LABS: ALT/SGPT 21 U/L (12-78); AST/SGOT 10 U/L (15-37); Albumin 4.3 g/dL (3.4-5.0); Alkaline Phosphatase 62 U/L (45-117); BUN Blood Urea Nitrogen 5 mg/dL (7-18); Bicarbonate 27 mmol/L (21-32); Bilirubin Direct < 0.1 mg/dL (0-0.2); Bilirubin Total 0.2 mg/dL (0.2-1.0); Ferritin 47.1 ng/mL (8-388); Glucose Level 77 mg/dL (74-106); Lipase 110 U/L (73-393); Potassium 3.7 mmol/L (3.5-5.1); Protein, Total 7.4 g/dL (6.4-8.2); Sodium Level 144 mmol/L (136-145); Troponin (Emerg Dept Use Only) < 0.02 ng/mL (0.0-0.045)
[2020-12-17 20:23] LABS: C-Reactive Protein < 2.90 mg/L (<3.00)
[2020-12-17] MEDS ORDERED: HYDROCODONE/APAP 5/325 MG TAB ONE (21:34)
--- NOTE | 2020-12-17 22:40 | EDPHYS ---
Physician Documentation [facility] Name: Ja Hassan Age: 25 yrs Sex: Female : 1995 Arrival Date: 12/17/2020 Time: 15:13 Bed 18 Private MD: ED Physician Rafael Durbin HPI: 12/17 18:50 The patient has had generalized body pain, subjective fevers, fatigue, and chills for kdr the last 2 weeks. She is also developed blisters on her upper lip for the past 3 days after being out in the sun. She went to an urgent care this morning and was tested for Covid that testing was reported to have been negative.. 18:50 Onset: The symptoms/episode began/occurred 2 week(s) ago. Severity of symptoms: At kdr their worst the symptoms were mild in the emergency department the symptoms are unchanged. The patient has experienced similar episodes in the past, multiple times. The patient has been recently seen at an urgent care, Patient was seen at [facility] urgent care this morning. 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 - Social history:: Smoking status: Patient denies any tobacco usage or history of. ROS: 18:50 Constitutional: Negative for objective fever. She has had chills and generalized kdr myalgias and arthralgias for the past 2 weeks Eyes: Negative for injury, pain, redness, and discharge, ENT: Negative for injury, pain, and discharge, Neck: Negative for injury, pain, and swelling, Cardiovascular: Negative for chest pain, palpitations, and edema, Respiratory: Negative for shortness of breath, cough, wheezing, and pleuritic chest pain, Abdomen/GI: Negative for abdominal pain, nausea, vomiting, diarrhea, and constipation, Back: Negative for injury and pain, : Negative for injury, bleeding, discharge, and swelling, Skin: Negative for injury, rash, and discoloration, she does complain of blistering to her upper lip secondary to sun exposure Neuro: Negative for headache, weakness, numbness, tingling, and seizure activity. Psych: Negative for depression, anxiety, suicide ideation, homicidal ideation, and hallucinations, Allergy/Immunology: Negative for hives, rash, and allergies, Endocrine: Negative for neck swelling, polydipsia, polyuria, polyphagia, and marked weight changes, Hematologic/Lymphatic: Negative for swollen nodes, abnormal bleeding, and unusual bruising. 18:50 MS/extremity: Positive for Patient complains of generalized and diffuse myalgias and arthralgias. Exam: 18:50 Constitutional: This is a well developed, well nourished patient who is awake, alert, kdr and in no acute distress. Eyes: Pupils equal round and reactive to light, extra-ocular motions intact. Lids and lashes normal. Conjunctiva and sclera are non-icteric and not injected. Cornea within normal limits. Periorbital areas with no swelling, redness, or edema. Neck: Trachea midline, no thyromegaly or masses palpated, and no cervical lymphadenopathy. Supple, full range of motion without nuchal rigidity, or vertebral point tenderness. No Meningismus. Chest/axilla: Normal chest wall appearance and motion. Nontender with no deformity. No lesions are appreciated. Cardiovascular: Regular rate and rhythm with a normal S1 and S2. No gallops, murmurs, or rubs. Normal PMI, no JVD. No pulse deficits. Respiratory: Lungs have equal breath sounds bilaterally, clear to auscultation and percussion. No rales, rhonchi or wheezes noted. No increased work of breathing, no retractions or nasal flaring. Abdomen/GI: Soft, non-tender, with normal bowel sounds. No distension or tympany. No guarding or rebound. No evidence of tenderness throughout. Back: No spinal tenderness. No costovertebral tenderness. Full range of motion. MS/ Extremity: Pulses equal, no cyanosis. Neurovascular intact. Full, normal range of motion. Neuro: Awake and alert, GCS 15, oriented to person, place, time, and situation. Cranial nerves II-XII grossly intact. Motor strength 5/5 in all extremities. Sensory grossly intact. Cerebellar exam normal. Normal gait. Psych: Awake, alert, with orientation to person, place and time. Behavior, mood, and affect are within normal limits. 18:50 Head/face: Patient has small raised blistered areas on her upper lip. Vital Signs: 15:54 BP 105 / 68; Pulse 81; Resp 20; Temp 98.8(TE); Pulse Ox 99% on R/A; Weight 58.97 kg kg (R); Height 5 ft. 5 in. (165.10 cm); Pain 8/10; 21:03 BP 120 / 69; Pulse 72; Resp 18; Pulse Ox 98% ; Pain 0/10; ms4 22:55 BP 124 / 74; Pulse 76; Resp 18; Pulse Ox 97% ; Pain 6/10; ms4 15:54 Body Mass Index 21.63 (58.97 kg, 165.10 cm) kg MDM: 22:37 Differential Diagnosis sepsis, Lupus exacerbation, musculoskeletal pain, nonspecific mh7 infection. Data reviewed: vital signs, nurses notes, old medical records, lab test result(s), CBC, electrolytes, urinalysis, radiologic studies, plain films. Data interpreted: Pulse oximetry: on room air is 98 %. Interpretation: normal. 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 Response to treatment: the patient's symptoms have markedly improved after treatment. 22:39 Patient medically screened. mh7 12/17 18:21 Order name: Urine Dipstick-Ancillary; Complete Time: 20:54 EDMS 12/17 18:24 Order name: Urine --Ancillary (enter results); Complete Time: 20:54 tt3 12/17 18:39 Order name: BMP kdr 12/17 18:39 Order name: Blood Culture Adult (2) kdr 12/17 18:39 Order name: C-Reactive Protein kdr 12/17 18:39 Order name: CBC with Diff kdr 12/17 18:39 Order name: D-Dimer; Complete Time: 20:54 kdr 12/17 18:39 Order name: Ferritin; Complete Time: 20:54 kdr 12/17 18:39 Order name: Flu; Complete Time: 20:54 kdr 12/17 18:39 Order name: LFT's; Complete Time: 20:54 kdr 12/17 18:39 Order name: Lactate kdr 12/17 18:39 Order name: Lipase; Complete Time: 20:54 kdr 12/17 18:39 Order name: PT-INR; Complete Time: 20:54 kdr 12/17 18:39 Order name: Procalcitonin; Complete Time: 20:54 kdr 12/17 18:39 Order name: Ptt, Activated; Complete Time: 20:54 kdr 12/17 18:39 Order name: Strep; Complete Time: 20:54 kdr 12/17 18:39 Order name: Troponin (emerg Dept Use Only); Complete Time: 20:54 kdr 12/17 18:39 Order name: CXR XRAY; Complete Time: 20:54 kdr 12/17 18:40 Order name: Basic Metabolic Panel; Complete Time: 20:54 EDOH 12/17 18:40 Order name: Blood Culture EDOH 12/17 18:40 Order name: C-Reactive Protein; Complete Time: 20:54 EDMS 12/17 18:40 Order name: CBC with Automated Diff; Complete Time: 20:54 EDMS 12/17 19:29 Order name: COVID-19 : Document "Date of Symptom Onset" if Symptomatic. 7 12/17 20:33 Order name: Throat Culture [facility] 12/17 21:54 Order name: SARS-COV-2 RT PCR; Complete Time: 22:32 EDOH 12/17 18:39 Order name: EKG; Complete Time: 18:40 kdr 12/17 18:39 Order name: Cardiac monitoring; Complete Time: 19:50 kdr 12/17 18:39 Order name: Droplet/Contact Precautions; Complete Time: 19:50 kdr 12/17 18:39 Order name: EKG - Nurse/Tech; Complete Time: 19:50 kdr 12/17 18:39 Order name: IV Start; Complete Time: 19:50 kdr 12/17 18:39 Order name: Labs collected and sent; Complete Time: 19:50 kdr 12/17 18:39 Order name: O2 Per Protocol; Complete Time: 19:50 kdr 12/17 18:39 Order name: O2 Sat Monitoring; Complete Time: 19:50 kdr 12/17 18:39 Order name: Urine Dipstick-Ancillary (obtain specimen); Complete Time: 21:01 kdr Administered Medications: 19:49 Drug: NS 0.9% 1000 ml Route: IV; Rate: 1 bolus; Site: right antecubital; zb 22:56 Follow up: Response: No adverse reaction; IV Status: Completed infusion; IV Intake: ms4 1000ml 19:49 Drug: Zofran (Ondansetron) 4 mg Route: IVP; Site: right antecubital; zb 21:02 Follow up: Response: No adverse reaction ms4 19:50 Drug: SOLU-Medrol (methylPrednisoLONE) 125 mg Route: IVP; Site: right antecubital; zb 21:02 Follow up: Response: No adverse reaction ms4 19:50 Drug: Ketorolac 15 mg Route: IVP; Site: right antecubital; zb 21:02 Follow up: Response: No adverse reaction ms4 21:28 Drug: HYDROcodone-acetaminophen 5 mg-325 mg 1 tabs Route: PO; ms4 22:55 Follow up: Response: No adverse reaction ms4 22:08 Drug: NS 0.9% 1000 ml Route: IV; Rate: 125 ml/hr; Site: right antecubital; ms4 22:55 Follow up: Response: No adverse reaction; IV Status: Completed infusion; IV Intake: ms4 150ml Disposition Summary: 12/17/20 22:39 Discharge Ordered Location: Home [facility] Problem: an ongoing problem mh7 Symptoms: have improved mh7 Condition: Stable 7 Diagnosis - Systemic lupus erythematosus, unspecified 7 Followup: 7 - With: Private Physician - When: 1 - 2 days - Reason: Worsening of condition, Recheck today's complaints, Continuance of care, Re-evaluation by your physician Discharge Instructions: - Discharge Summary Sheet 7 - Systemic Lupus Erythematosus, Adult 7 Forms: - Medication Reconciliation Form 7 - Thank You Letter 7 - Antibiotic Education 7 - Prescription Opioid Use [facility] Prescriptions: - Medrol (Reji) 4 mg Oral Tablets, Dose Pack - take 1 tablet by ORAL route as directed - follow package instructions; [facility] packet; Refills: 0, Product Selection Permitted Signatures: Dispatcher [employer] EDAime Huber MD MD kdr Holmes, Maurice, MD MD mh7 Aurora Cyr, RN RN Clarice Giordano, RN RN kg Jina Gregory RN RN ms4 Corrections: (The following items were deleted from the chart) 18:57 17:32 post triage evaluation and consult kg em 18:57 17:32 to labor and delivery kg em 20:44 19:29 CORONAVIRUS ordered. EDMS EDMS 20:56 18:39 Peters ordered. kdr ms4
[2020-12-17 23:24] VITALS: BP 124/74; O2SAT 97
== END 2020-12-17 22:56 | disposition home or self-care (01) ==
LOC: ER 15:11
DX: M32.9 Systemic lupus erythematosus, unspecified (principal); Z20.822 Contact with and (suspected) exposure to COVID-19; Z88.0 Allergy status to penicillin
CPT/HCPCS: 96361; 87040 ×2; 87070; 85025; 80048; 36415; 81025; 85610; 85379; 80076; 87081; 83605; 85730; 81003; 84484; 82728; 83690; 84145; 86140; 87804 ×2; 71045; 96375; 96374; 99284; U0003; J7030; J2930; J2405